=== PATIENT | female | born 1965 | race Caucasian/White ===

== ENCOUNTER 2022-07-10 04:14 | Emergency (ER) | payer BC, SELFPAY ==
[2022-07-10 04:19] VITALS: BP 121/105; PULSE 93; RESP 20; TEMP 36.1; O2SAT 98; BMI 33.7
[2022-07-10 04:35] VITALS: BP 139/91; PULSE 86; RESP 20; O2SAT 98
[2022-07-10] MEDS: OxyCODONE/APAP 5-325 TABLET 2 TAB PO (05:08)
--- NOTE | 2022-07-11 04:03 | ED_ITS ---
HPI - General Adult General Chief complaint: Shoulder Injury/Pain Stated complaint: pain in right shoulder Time Seen by Provider: 07/10/22 04:32 History of Present Illness HPI narrative: 37-year-old woman accompanied by asthma in with complaint of right shoulder and arm area pain this just ?pain?. She has a hard time describing it clearly in a good deal of distress. No new injuries. Has been seeing a chiropractor with reportedly less than aggressive manipulation of her neck. I see kinetic taping in place during exam. She has numerous allergies to pain medications including opiate pain medication. Apparently has been re-initiated on Relafen. Does have a history of upper extremity radicular symptoms. Has had steroid injections in her neck last noted apparently in January of 2022. Had a large lipoma removed from the right scapula also in January of 2022. MRI apparently revealing ?pinched nerves? in C5 and C6. This pain going down her right arm is relatively diffuse. Extensive past medical is given on prepared document. 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 She is not noting any particular joint swelling at this time. No fever reported Related Data Home Medications Medication Instructions Recorded Confirmed cetirizine 10 mg tablet (24Hour 10 mg PO DAILY PRN 07/10/22 07/10/22 Allergy) lisinopril 30 mg tablet 30 mg PO DAILY 07/10/22 07/10/22 metformin 500 mg tablet,extended mg PO 07/10/22 release 24 hr metoprolol tartrate 25 mg tablet 25 mg PO BID 07/10/22 07/10/22 nabumetone 750 mg tablet 750 mg PO BID 07/10/22 07/10/22 omeprazole 40 mg capsule,delayed 40 mg PO DAILY 07/10/22 07/10/22 release Allergies Allergy/AdvReac Type Severity Reaction Status Date / Time varenicline [From Chantix] Allergy Unknown Headache Verified 07/10/22 04:33 acetaminophen [From Vicodin] Allergy Hives Verified 07/10/22 04:33 codeine Allergy Hives Verified 07/10/22 04:33 hydrocodone [From Vicodin] Allergy Hives Verified 07/10/22 04:33 hydromorphone [From Dilaudid] Allergy itching Verified 07/10/22 04:33 hydroxychloroquine Allergy Rash Verified 07/10/22 04:33 [From Plaquenil] ketorolac [From Toradol] Allergy Rash Verified 07/10/22 04:33 morphine Allergy Rash Verified 07/10/22 04:33 nabumetone [From Relafen] Allergy high blood Verified 07/10/22 04:33 pressure Review of Systems Status of ROS: Reports: 6 or more systems reviewed and unremarkable except as noted in History and below [facility] Social History Smoking Status: Current every day smoker Do you use any of these nicotine containing products: None Second hand tobacco smoke exposure: Yes How often do you have a drink containing alcohol: 2-4 times a month AUDIT-C Alcohol total score: 2 Non-prescribed substance use: marijuana (any form) Exam Narrative: Exam Narrative: Pleasant. Larger/tall stature. Clearly restless and in moderate distress. Prefers to stand and move about. Well-perfused peripherally. Good pulses. Has being kinetic tape at the right shoulder area. Head is tilted to the left. Spurling's/compression testing markedly increases apparent pain into the right shoulder and right arm. Muscles in trapezius and paracervical musculature on the right side are tense. Const: Vital Signs, click to edit/add: Vital Signs - 24 hr 07/10/22 04:35 Pulse Rate [Pulse Oximeter] 86 Respiratory Rate 20 Blood Pressure [Le ft Upper Arm] 139/91 H Pulse Oximetry 98 Oxygen Delivery Me thod Room Air Documenting provider has reviewed patient's vital signs: yes Course Vital Signs Vital signs: Initial Vital Signs Temperature 97 F L 07/10/22 04:19 Temperature Source Temporal Artery Scan 07/10/22 04:19 Pulse Rate 93 07/10/22 04:19 Respiratory Rate 20 07/10/22 04:19 Blood Pressure 121/105 H 07/10/22 04:19 Blood Pressure Mean 110 07/10/22 04:19 Pulse Oximetry 98 07/10/22 04:19 Oxygen Delivery Method 07/10/22 04:19 Vital Signs Temperature 97 F L 07/10/22 04:19 Pulse Rate 93 07/10/22 04:19 Respiratory Rate 20 07/10/22 04:19 Blood Pressure 121/105 H 07/10/22 04:19 Pulse Oximetry 98 07/10/22 04:19 Oxygen Delivery Method 07/10/22 04:19 Temperature 97 F L 07/10/22 04:19 Pulse Rate 86 07/10/22 04:35 Respiratory Rate 20 07/10/22 04:35 Blood Pressure 139/91 H 07/10/22 04:35 Pulse Oximetry 98 07/10/22 04:35 Oxygen Delivery Method 07/10/22 04:35 Medical Decision Making MDM Narrative Medical decision making narrative: Symptoms and physical exam I would say are consistent with radicular symptoms emanating from the neck. Does not seem to have infectious etiology without swelling redness fever. White count certainly might be elevated in the setting of inflammatory conditions that she has mentioned. I do not think it is unreasonable to try to break this pain here. Is also concerned about returning to work. Did give 2 tabs though of Percocet. Further from [facility] along with a course of prednisone. Will need close follow-up in primary and [facility]/sports medicine. Is anticipating follow-up shortly also from rheumatology. See patient discharge plan. Discharge Plan Discharge Clinical Impression: Cervical radiculitis, Dermatitis Patient Disposition: Home w/ Parent or Adult Condition: Unchanged Additional Instructions: I am sorry you are so uncomfortable. Please call today to follow-up with your primary care provider by the end of the week if possible. Or perhaps your outside sales professional will have something more to offer in the short term. I suppose I would alternate warm and cold packs to your neck and shoulder area. Percocet and prednisone from [facility]. You can take an additional Percocet in 1 hour if not getting good relief from the 2 tabs you got here in the ER. I believe you can get 2% hydrocortisone cream [id number]. I would apply that 2 - 3 times a day behind your ears over this next week. Take the prednisone as 60 mg daily for 3 days, then 40 mg daily for 4 days, then 20 mg daily for 3 days Prescriptions: No Action nabumetone 750 mg tablet 750 mg PO BID omeprazole 40 mg capsule,delayed release(DR/EC) 40 mg PO DAILY lisinopril 30 mg tablet 30 mg PO DAILY metformin 500 mg tablet extended release 24 hr PO cetirizine [24Hour Allergy] 10 mg tablet 10 mg PO DAILY PRN metoprolol tartrate 25 mg tablet 25 mg PO BID Follow Up/Referrals: Jani Oropeza MD [Primary Care Provider] - Stand Alone Forms: [employer] Info Instructions
== END 2022-07-10 05:13 | disposition home or self-care (01) ==
PROVIDERS: Emergency Provider Family Medicine; PCP Family Medicine
DX: L30.9 Dermatitis, unspecified (principal); M54.12 Radiculopathy, cervical region
CPT/HCPCS: 99283; A9270